=== PATIENT | female | born 1990 | race Caucasian/White ===

== ENCOUNTER 2019-12-06 17:40 | Observation (INO) | payer OTHER ==
[~2019-12-06] VITALS: Ht 157.5 cm; Wt 81.6 kg
[2019-12-06] MEDS ORDERED: PREN-380 PO (18:42)
[2019-12-06 18:58] VITALS: BP 100/60
== END 2019-12-06 21:05 | disposition home or self-care (01) ==
LOC: MLD 17:40
PROVIDERS: ADMIT Obstetrics & Gynecology; ATTEND Obstetrics & Gynecology
DX: O26.892 Other specified pregnancy related conditions, second trimester (principal); R10.31 Right lower quadrant pain; R10.32 Left lower quadrant pain; Z87.59 Personal history of other complications of pregnancy, childbirth and the puerperium; Z98.82 Breast implant status; Z3A.25 25 weeks gestation of pregnancy
CPT/HCPCS: 76805; G0378; Q0092